=== PATIENT | male | born 1995 | race Caucasian/White ===

== ENCOUNTER 2016-07-23 12:28 | Day surgery (SDC) | payer BC ==
[2016-07-23] MEDS ORDERED: VENTOLIN HFA18 GM INH (12:52)
[2016-07-23] MEDS ORDERED: IV RINGERS,LACTATED 1000ML 1,000 ML IV ONE (13:15)
[2016-07-23] MEDS ORDERED: CLINDAMYCIN 600MG PREMIX 50 ML IV ONE (13:15)
[2016-07-23] MEDS ORDERED: IV RINGERS,LACTATED 1000ML 1,000 ML IV SCH (13:34)
[2016-07-23] MEDS ORDERED: MORPHINE SULFATE 2 MG/ML DISP.SYRIN. IV PRN (13:45)
[2016-07-23] MEDS ORDERED: LIDOCAINE 1% 1 ML SYRINGE. ID PRN (13:45)
[2016-07-23] MEDS ORDERED: PROCHLORPERAZINE 10 MG/2 ML VIAL. IV PRN (13:45)
[2016-07-23] MEDS ORDERED: FENTANYL PF 100 MCG/2 ML VIAL. IV PRN ×2 (13:45)
[2016-07-23] MEDS ORDERED: ONDANSETRON PF 4 MG/2 ML VIAL. IV PRN (13:45)
[2016-07-23] MEDS ORDERED: HYDROMORPHONE 2 MG/ML VIAL. IV PRN (13:45)
[2016-07-23] MEDS ORDERED: BUPIVACAINE 0.5% 50 ML VIAL. ONE (13:58)
[2016-07-23] MEDS ORDERED: FENTANYL PF 100 MCG/2 ML VIAL. ONE (13:59)
[2016-07-23] MEDS ORDERED: MIDAZOLAM HCL/PF 2 MG/2 ML VIAL. ONE (13:59)
[2016-07-23] MEDS ORDERED: SEVOFLURANE 61 TO 120 MINUTES. IH ONE (14:00)
[2016-07-23] MEDS ORDERED: PROPOFOL 20 ML IV ONE (14:00)
[2016-07-23] MEDS ORDERED: LIDOCAINE 2% 100 MG/5 ML SYRINGE. ONE (14:00)
--- NOTE | 2016-07-23 14:45 | HP ---
ADMIT DATE: 07/23/2016 The patient is coming in today for operation. CHIEF COMPLAINT: Right testicular mass. HISTORY OF PRESENT ILLNESS: The patient is a very pleasant 21-year-old white male who was seen in the Emergency Room on the morning of 07/23/2016 for swelling and discomfort in the right testicle. The patient had workup including ultrasound, which showed a heterogeneous solid mass within the right testicle measuring 32 x 30 x 25 mm with internal blood flow and concerning for testicular neoplasm. The patient states he first started noticing the enlarged right testicle, which was firm several days ago. The patient with no prior urologic history. PAST MEDICAL HISTORY: Significant for asthma and some concussion. CURRENT MEDICATION: Albuterol inhaler as needed. ALLERGIES: HE HAS ALLERGY TO PENICILLIN, LORABID AND CEPHALOSPORINS. PAST SURGICAL HISTORY: He has had previous arthroscopic knee surgery in 2013 and wisdom tooth extraction in the past. The patient reports no problems with voiding. REVIEW OF SYSTEMS: ____ discomfort in the right hemiscrotum. PHYSICAL EXAMINATION: GENERAL: The patient is well-developed, well-nourished white male, in no acute distress. HEENT: Normocephalic, atraumatic. NECK: Supple. CHEST: Clear to auscultation. CARDIOVASCULAR: Regular rate and rhythm. ABDOMEN: Soft, nontender, no CVA tenderness. GENITOURINARY: Left testicle is normally descended. Right testicle is approximately twice the size of the left testicle and firm with some tenderness to palpation. No inguinal hernias. Phallus within normal limits. RECTAL: Good sphincter tone. Prostate smooth, nontender, without nodules, overall size 15 grams. EXTREMITIES: Without clubbing, cyanosis or edema. NEUROLOGIC: Grossly intact. LABORATORY DATA: The patient's LDH is 296. ____ are pending. Chest x-ray was within normal limits. PLAN: I discussed with the patient and his mother. The solid right testicular mass concerning for testicular neoplasm. We discussed the options, alternatives, benefits, risks and possible complications of right radical orchiectomy. They understand this and does wish to proceed with operation. We will therefore proceed accordingly today. GABRIEL OGDEN MD DR: JEB/fay JOB#: [id number] / [id number]
[2016-07-23] MEDS ORDERED: MORPHINE SULFATE 10 MG/ML VIAL. ONE (14:46)
[2016-07-23] MEDS ORDERED: ONDANSETRON PF 4 MG/2 ML VIAL. ONE (14:47)
[2016-07-23] MEDS ORDERED: DEXAMETHASONE SOD PHOS 20 MG/5 ML VIAL. ONE (14:47)
--- NOTE | 2016-07-23 15:53 | DISCH ---
DISCHARGE INSTRUCTIONS Condition on Discharge Condition on Discharge: Stable Activity After Discharge Activity Instructions for Disc: Avoid exertion Diet after Discharge Diet after Discharge: Regular Contacting the DR. after DC Call your doctor for: If your condition worsens Follow-Up Follow up with: follow up with Dr. Galaviz in 2 weeks GABRIEL GALAVIZ MD Jul 23, 2016 15:53
--- NOTE | 2016-07-23 15:55 | PDOC4 ---
Operative Note Operative Note Pre-op dx- Right solid testicular mass Procedure-Right radical orchiectomy Surgeon-agnes anes-General with local Pt. to PACU in stable condition GABRIEL OGDEN MD Jul 23, 2016 15:55
[2016-07-23 17:00] VITALS: BP 145/77
--- NOTE | 2016-07-23 22:15 | OP ---
DATE OF SURGERY: 07/23/2016 OPERATION: Right radical orchiectomy. SURGEON: Gabriel Galaviz MD. ANESTHESIA: General. PREOPERATIVE DIAGNOSIS: Solid right testicular mass. POSTOPERATIVE DIAGNOSIS: Solid right testicular mass. INDICATIONS: The patient is a very pleasant 21-year-old white male who presented to the Emergency Room on the morning of 07/23/2016 with discomfort and enlargement of the right testicle. The patient had a scrotal ultrasound which showed heterogeneous solid mass in the right testicle measuring 32 x 30 x 25 mm with internal blood flow concerning for testicular neoplasm. The patient has had preoperative tumor markers drawn and chest x-ray performed which was negative. 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 I discussed with the patient and his family the options, alternatives, benefits, risks and possible complications of right radical orchiectomy. They understood this and they wish to proceed with operation. DESCRIPTION OF PROCEDURE: After obtaining the informed consent, the patient was taken to the operating room and placed in a supine position. Lower abdomen and groin and upper thighs were then prepped and draped in sterile fashion. The patient was preloaded with IV antibiotics. The patient was noted to have a normal feeling and located left testicle and the right testicle felt firm and enlarged and solid. A right inguinal incision was then performed along the skin lines and the incision carried down through subcutaneous tissues. Hemostasis was maintained with a fine tip electrocautery. Dissection was carried down to the aponeurosis of external oblique. The aponeurosis was then cleaned and incised in the direction of its fibers down through the external ring. The right ilioinguinal nerve was identified and preserved. The right spermatic cord was then encircled at the pubic tubercle and a Casey drain placed as a Pearl tie around the cord to occlude it. Following this, the right testicle was then delivered up via inguinal wound and dissected free of surrounding tissues. The gubernaculum was taken down and ligated and divided with 3-0 chromic ligatures. Once the testicle was completely free along with the spermatic cord, it was dissected free at the level of the right internal ring. The cord was then triply clamped at the right internal ring and divided and the specimen of the right testicle and spermatic cord sent to pathology placed in formalin and sent to pathology. Following this, the right spermatic cord stump was then triply ligated with 0 silk free tie and 2-0 silk ____ tie and the suture left long on the stump after cutting the stump. Hemostasis was checked and found to be excellent. Following this, the right inguinal wound was then thoroughly irrigated with copious amounts of sterile water. Hemostasis was maintained with fine tip electrocautery and 3-0 chromic ligatures. Hemostasis was checked and found to be excellent. Following this, the right ilioinguinal nerve was identified and again found to be preserved. The aponeurosis of external oblique was then closed with 3-0 Vicryl running suture. Again the wound was irrigated and the Sofía fascia closed with 3-0 chromic running suture and then the skin closed with 4-0 Monocryl running subcuticular suture. The wound was infiltrated with 0.5% Marcaine prior to closure for postoperative pain control. Hemostasis was checked and found to be excellent. Following this, the skin was then cleansed and Steri-Strips and a sterile dressing were applied. Fluffs were placed on the scrotum and mesh pants placed. The left testicle was found to be in good position at the end of the case in the left hemiscrotum. The patient tolerated the procedure very well, was taken to recovery room in stable condition. GABRIEL GALAVIZ MD DR: JEB/fay JOB#: [id number] / [id number]
== END 2016-07-23 17:13 | disposition home or self-care (01) ==
LOC: SURG 12:28
PROVIDERS: ATTEND Urology
DX: N50.89 Other specified disorders of the male genital organs (principal); Z87.39 Personal history of other diseases of the musculoskeletal system and connective tissue
CPT/HCPCS: 54520; J1100; J2250; J2270; J2405; J2704; J3010; J3490; J7120

== ENCOUNTER → 2016-07-30 | Outpatient (CLI) | payer BC ==
[2016-07-23 17:00] VITALS: BP 145/77
[~2016-07-30] MED LIST: IOHEXOL 240 MG/ML 50ML VIAL. PO ONE; IOHEXOL 300 MG/ML 75 ML VIAL IV ONE; VENTOLIN HFA18 GM INH
--- NOTE | 2016-07-30 09:51 | RAD ---
Indication testicular malignancy. Axial images through the abdomen and pelvis were obtained. Both oral and IV contrast were administered. 75 cc of Omnipaque 300 was administered intravenously. No prior imaging of the abdomen or pelvis is available. The lung bases are clear. There is air in the soft tissues of the right groin which is likely secondary to recent surgery. Clinical correlation advised. The liver appears unremarkable and the gallbladder is grossly normal. The spleen is at the upper limits of normal in size. The pancreas adrenal glands and kidneys appear normal. Acute finding in the abdomen is not seen. No acute finding is apparent in the pelvis. There is mild to moderate retroperitoneal adenopathy. A few lymph nodes are seen in the area of the leopoldo hepatis and surrounding the pancreas. Mild periaortic adenopathy is seen as well as a few lymph nodes at the level of the aortic bifurcation in the retroperitoneum. The short axis of the largest nodes measures approximately 9 mm. The etiology is unclear but metastatic disease accounting for this moderate adenopathy is not excluded. 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 The etiology is unclear. Metastatic disease is not excluded PQRS Compliance Statement: One or more of the following individualized dose reduction techniques were utilized for this examination: 1. Automated exposure control 2. Adjustment of the mA and/or kV according to patient size 3. Use of iterative reconstruction technique
== END | disposition home or self-care (01) ==
LOC: CT 07:52
PROVIDERS: ATTEND Urology
DX: N50.9 Disorder of male genital organs, unspecified (principal)
CPT/HCPCS: 74177; Q9966; Q9967

== ENCOUNTER 2016-09-15 03:14 | Inpatient (IN) | payer BC ==
[~2016-09-15] VITALS: Ht 193 cm; Wt 133.8 kg
[2016-09-15] VITALS (22 sets, daily range): BP systolic 99–166; BP diastolic 40–71
[~2016-09-15 03:14] MED LIST changes: -IOHEXOL 240 MG/ML 50ML VIAL. PO ONE; -IOHEXOL 300 MG/ML 75 ML VIAL IV ONE
[2016-09-15] MEDS ORDERED: PROPOFOL 100 ML IV ONE (04:29)
[2016-09-15] MEDS ORDERED: ONDANSETRON PF 4 MG/2 ML VIAL. IV PRN (05:15)
[2016-09-15] MEDS ORDERED: ACETAMINOPHEN 650 MG/20.3 ML SOLUTION. PEG PRN (05:15)
[2016-09-15] MEDS: IV NORMAL SALINE 1000ML BAG 1,000 ML IV SCH ×2 (05:24→18:07)
[2016-09-15] MEDS: PROPOFOL 100 ML IV PRN ×5 (05:25→14:55)
[2016-09-15 05:35] LABS: FIO2 ABG 60; HCO3 ABG 22 mmol/L (21-28); PCO2 ABG 35 mmHg (35-46); PH ABG 7.41 (7.35-7.45); PO2 ABG 210 mmHg (85-108); SAT O2 ABG 99 % (92-99)
[2016-09-15] MEDS ORDERED: PNEUMOCOCCAL VAX SCREEN BY RX. MC ONE (06:00)
--- NOTE | 2016-09-15 06:52 | RAD ---
KUB: Reason for examination: NG tube placement. NG tube is present with the tip and side port within the stomach proximally. There is no gross organomegaly. Psoas muscles are symmetric. The bowel gas pattern is nonspecific small and large intestinal air present but no apparent obstruction. No acute bony abnormalities are seen. IMPRESSION: NG tube present with the tip and side port in the proximal stomach. Nonspecific bowel gas pattern with small and large intestine air present but no evidence of obstruction. Electronically signed by: Saige Long MD (09/15/2016 6:49 AM)
[2016-09-15] MEDS ORDERED: PNEUMOC CONJ VACC 23-VALENT 0.5 ML VIAL. VAX IM ONE (09:00)
--- NOTE | 2016-09-15 09:37 | RAD ---
Indication respiratory failure. Single view of the chest was obtained. No prior imaging of the chest is available. Heart size is at the upper limits of normal. There is no gross congestive heart failure. There is no consolidated pneumonia seen. Significant pleural fluid is not present. There is no pneumothorax. Nasogastric tube is coiled in the body of the stomach. Endotracheal tube is appropriately positioned above the jesus. IMPRESSION: No acute or focal process seen in the chest. Appropriately positioned nasogastric and endotracheal tubes.
--- NOTE | 2016-09-15 09:51 | RAD ---
Fall, injury. Closed head injury. Noncontrast images of the head were obtained. No prior imaging of the head is available. No acute or significant calvarial finding is seen. The visualized paranasal sinuses appear unremarkable. There is no subdural or epidural hematoma. The ventricles and sulci are normal. There is no mass or midline shift. No hemorrhage is seen. Acute intracranial finding is not seen. IMPRESSION: No acute or significant finding seen intracranially PQRS Compliance Statement: One or more of the following individualized dose reduction techniques were utilized for this examination: 1. Automated exposure control 2. Adjustment of the mA and/or kV according to patient size 3. Use of iterative reconstruction technique
[2016-09-15] MEDS: PANTOPRAZOLE IV PUSH 40 MG VIAL. IVP SCH (09:53)
[2016-09-15] MEDS: ENOXAPARIN 40 MG/0.4 ML SYRINGE. SQ SCH (09:54)
[2016-09-15 10:36] LABS: BASO % 1 % (0-3); EOS % 1 % (0-3); HEMATOCRIT 38.9 % (39.0-53.0); LYMPH # 3.6 x10^3/uL (1.0-4.8); LYMPH % 46 % (24-48); MEAN CORPUSCULAR HEMOGLOBIN 28 pg (25-35); MEAN CORPUSCULAR HGB CONC 33 g/dL (31-37); MEAN CORPUSCULAR VOLUME 83 fL (79-100); MONO % 8 % (0-9); NEUT % 44 % (31-73); PLATELET COUNT 251 x10^3/uL (140-400); RED BLOOD COUNT 4.68 x10^6/uL (4.30-5.70); RED CELL DISTRIBUTION WIDTH 16.2 % (11.5-14.5); WHITE BLOOD COUNT 7.9 x10^3/uL (4.0-11.0)
--- NOTE | 2016-09-15 10:45 | PDOC ---
PULMONARY PROGRESS NOTES Vitals Vital Signs Date Time Temp Pulse Resp B/P (MAP) Pulse Ox O2 Delivery O2 Flow Rate FiO2 09/15/16 08:56 100 Ventilator 09/15/16 06:30 69 17 110/50 (70) 09/15/16 04:45 96.2 96.2 Labs Laboratory Tests Test 09/15/16 05:15 O2 Saturation 99 % (92-99) Arterial Blood pH 7.41 (7.35-7.45) Arterial Blood pCO2 at Patient Temp 35 mmHg (35-46) Arterial Blood pO2 at Patient Temp 210 mmHg (85-108) Arterial Blood HCO3 22 mmol/L (21-28) Arterial Blood Base Excess -2 mmol/L (-3-3) FiO2 60 Laboratory Tests Test 09/15/16 05:15 O2 Saturation 99 % (92-99) Arterial Blood pH 7.41 (7.35-7.45) Arterial Blood pCO2 at Patient Temp 35 mmHg (35-46) Arterial Blood pO2 at Patient Temp 210 mmHg (85-108) Arterial Blood HCO3 22 mmol/L (21-28) Arterial Blood Base Excess -2 mmol/L (-3-3) FiO2 60 Medications Active Scripts Medications Dose Route/Sig Max Daily Dose Days Date Category Ventolin Hfa Inhaler (Albuterol Sulfate) 18 Gm Hfa.aer.ad 2 Puff INH QID 07/23/16 Reported Impression . NOTE DICTATED RESP FAILURE SEC TO DRUG OD EXTUBATE IN AM BEBE MIKE MD Sep 15, 2016 10:45
[2016-09-15 10:48] LABS: CALCIUM 8.1 mg/dL (8.5-10.1); CREATININE 0.9 mg/dL (0.7-1.3); GFR 106.5; POTASSIUM 3.6 mmol/L (3.5-5.1)
--- NOTE | 2016-09-15 10:57 | PDOC1 ---
History and Physical Date of Admission Date of Admission DATE: 09/15/16 TIME: 10:44 Identification/Chief Complaint Chief Complaint confusion, alcohol intoxicated Problems: Source Source: Caregiver, Chart review History of Present Illness History of Present Illness 21 y.o male, only hx is asthma and testicular cancer recently had sx by urology (dr galaviz) this July 23, 2016 here at [facility], was confused, vomiting at [facility], found to be intoxicated with etoh hence intubated. ETOH levels 369. LActate normal. WBC only 11, rest of labs ok/unimpressive Seen in ICU now, VS ok, labs ok, ABG and CXR ok, I have personally reviewed Dw pulmo, plans of extubation shirlene - wean off propofol today see mentation As per family at bedside, no hx of heavy etohism that they know Past Medical History Cardiovascular: No pertinent hx Pulmonary: No pertinent hx GI: No pertinent hx Heme/Onc: Cancer (testicular cancer) Psych: No pertinent hx Rheumatologic: No pertinent hx Infectious disease: No pertinent hx Renal/: No pertinent hx Endocrine: No pertinent hx Dermatology: No pertinent hx Social History Smoke: No ALCOHOL: other (just this binge) Drugs: None Current Medications Current Medications Current Medications Propofol 100 ml @ As Directed STK-MED ONCE IV ; Start 09/15/16 at 04:29; Stop at 04:30; Status DC Propofol 100 ml @ 0 mls/hr CONT PRN IV SEE I/O RECORD Last administered on 09:56; Start 09/15/16 at 05:15 Pantoprazole Sodium (Protonix Vial) 40 mg DAILY IVP Last administered on 09:53; Start 09/15/16 at 09:00 Enoxaparin Sodium (Lovenox 40mg Syringe) 40 mg Q24H SQ Last administered on 09/15 09:54; Start 09/15/16 at 05:30 Ondansetron HCl (Zofran) 4 mg PRN Q6HRS PRN IV NAUSEA/VOMITING; Start 09/15/16 at 05:15 Acetaminophen (Tylenol) 650 mg PRN Q6HRS PRN PEG MILD PAIN / TEMP; Start at 05:15 Sodium Chloride 1,000 ml @ 100 mls/hr Q10H IV Last administered on 6/7/17at 05 :24; Start 09/15/16 at 05:30 Pneumococcal Polyvalent Vaccine (Do NOT chart on this placeholder) 1 each 1X ONCE MC ; Start 09/15/16 at 06:00; Stop 09/15/16 at 06:01; Status UNV Pneumococcal Polyvalent Vaccine (Pneumovax 23) 0.5 ml ONCE ONCE VAX IM ; Start 09/15/16 at 09:00; Stop 09/15/16 at 09:01; Status DC Active Scripts Active Reported Ventolin Hfa Inhaler (Albuterol Sulfate) 18 Gm Hfa.aer.ad 2 Puff INH QID Allergies Allergies: Coded Allergies: Penicillins (Unverified Allergy, Intermediate, Rash, 07/23/16) loracarbef (Unverified Allergy, Intermediate, 07/30/16) Cephalosporins (Verified Allergy, Unknown, Rash, 07/23/16) ROS Review of System intubated Physical Exam General: No acute distress, Other (intubated,s edated weighs 300lbs, 6'4") HEENT: PERRLA Lungs: Clear to auscultation, Normal air movement Cardiovascular: S1, S2 Abdomen: Normal bowel sounds, Soft, No tenderness, No hepatosplenomegaly, No masses Male Genitals Exam: normal genitalia, normal prostate Rectal Exam: not examined Extremities: No clubbing, No cyanosis, No edema, Normal pulses, No tenderness/ swelling Skin: No rashes, No breakdown, No significant lesion Vitals Vitals Vital Signs Date Time Temp Pulse Resp B/P (MAP) Pulse Ox O2 Delivery O2 Flow Rate FiO2 09/15/16 08:56 100 Ventilator 09/15/16 06:30 69 17 110/50 (70) 09/15/16 04:45 96.2 96.2 Labs Labs Laboratory Tests Test 09/15/16 05:15 O2 Saturation 99 % (92-99) Arterial Blood pH 7.41 (7.35-7.45) Arterial Blood pCO2 at Patient Temp 35 mmHg (35-46) Arterial Blood pO2 at Patient Temp 210 mmHg (85-108) Arterial Blood HCO3 22 mmol/L (21-28) Arterial Blood Base Excess -2 mmol/L (-3-3) FiO2 60 Laboratory Tests Test 09/15/16 05:15 O2 Saturation 99 % (92-99) Arterial Blood pH 7.41 (7.35-7.45) Arterial Blood pCO2 at Patient Temp 35 mmHg (35-46) Arterial Blood pO2 at Patient Temp 210 mmHg (85-108) Arterial Blood HCO3 22 mmol/L (21-28) Arterial Blood Base Excess -2 mmol/L (-3-3) FiO2 60 VTE Prophylaxis Ordered VTE Prophylaxis Devices: Yes VTE Pharmacological Prophylaxi: Yes Assessment/Plan Assessment/Plan 1. Acute respiratory failure intubated for airway protection, (09/14/16) 2. Emesis while intoxicated 3. EToh ;levels 369 4. Recent orchiectomy for testicular CA, limited (07/23/16, Dr. Galaviz) PLAN: ICU admit Wean off propofol - see mentation POssible trial of extubation shirlene DVT and pPI prophy TF vs some iVF for now Dw pulmo and [employer] NUtrition consult ARABELLA CUNNINGHAM MD Sep 15, 2016 10:57
[2016-09-15] MEDS ORDERED: fentaNYL PF VIAL 100 MCG/2 ML VIAL IV PRN (13:30)
[2016-09-16] VITALS (11 sets, daily range): BP systolic 121–159; BP diastolic 48–80
--- NOTE | 2016-09-16 01:11 | CONS ---
DATE OF CONSULTATION: 09/15/2016 ATTENDING PHYSICIAN: Dr. Malgorzata Curtis. REASON FOR CONSULTATION: The patient is seen in pulmonary consultation at the request of Dr. Curtis for vent management. HISTORY OF PRESENT ILLNESS: The patient is a 21-year-old with a recent history of testicular mass, status post resection, currently under control according to his mother at the bedside. Last markers were within normal range. He also has history of asthma, but has not had any hospitalization, no frequent exacerbations, presented to the Emergency Room at [facility] with nausea, vomiting and altered mental status after consuming some hydrocodone, Percocet and alcohol. His alcohol level was markedly elevated. The patient was intubated as a consequence of airway protection, did have episodes of emesis. He was then transferred to the [facility]. I was asked to see him in consultation. He is currently hemodynamically stable on assist control ventilation. I reviewed his medication. He is receiving IV fluids, sedated, on DVT prophylaxis and GI prophylaxis. PAST MEDICAL HISTORY: As above, testicular cancer, recent diagnosis; asthma, mild in nature. ALLERGIES: CEPHALOSPORIN, PENICILLIN, LORACARBEF. REVIEW OF SYSTEMS: Unobtainable secondary to the patient's condition. HOME MEDICATIONS: List was reviewed. SOCIAL HISTORY: No history of tobacco use. PHYSICAL EXAMINATION: GENERAL: The patient was sedated. VITAL SIGNS: Stable. O2 saturation greater than 92%. HEENT: Eyes, the sclerae were nonicteric. NECK: Jugular venous distention was not elevated. No lymphadenopathy. CHEST: Full expansion. LUNGS: Adequate airway flow, no wheezes. CARDIOVASCULAR: Regular rate and rhythm with S1, S2, no S3. ABDOMEN: Soft, nontender, nondistended. EXTREMITIES: No clubbing, cyanosis or edema. NEUROLOGIC: The patient was sedated. Chest x-ray was reviewed from [facility], some atelectasis, otherwise no infiltrates. LABORATORY DATA: Likewise reviewed. This morning, blood gas; pH of 7.41, PaCO2 of 35, pO2 of 210. IMPRESSION: 1. Acute respiratory failure secondary to alcohol intoxication. 2. Alcoholic intoxication. 3. Emesis secondary to above. 4. History of testicular cancer. 5. Mild asthma. PLAN: We will continue current support with mechanical ventilation ____ to clear the system, proceed with extubation in the a.m. Decrease minute ventilation to normalize pH. I discussed the above with parents. I do appreciate the privilege in sharing in the patient's care. Total cumulative critical care time of 40 minutes. BEBE MIKE MD DR: Kennedi JOB#: [id number] / [id number]
[2016-09-16] MEDS: IV NORMAL SALINE 1000ML BAG 1,000 ML IV SCH (03:50)
[2016-09-16] MEDS: ENOXAPARIN 40 MG/0.4 ML SYRINGE. SQ SCH (05:30)
[2016-09-16] MEDS: PANTOPRAZOLE IV PUSH 40 MG VIAL. IVP SCH (09:37)
--- NOTE | 2016-09-16 11:29 | PDOC ---
PULMONARY PROGRESS NOTES Vitals Vital Signs Date Time Temp Pulse Resp B/P (MAP) Pulse Ox O2 Delivery O2 Flow Rate FiO2 09/16/16 10:00 104 22 155/80 (105) 97 Room Air 09/16/16 04:00 98.3 98.3 Cardiovascular: S1, S2 Labs Laboratory Tests Test 09/15/16 05:07 09/15/16 05:15 09/15/16 10:25 Nasal Screen MRSA (PCR) Negative (Negative) O2 Saturation 99 % (92-99) Arterial Blood pH 7.41 (7.35-7.45) Arterial Blood pCO2 at Patient Temp 35 mmHg (35-46) Arterial Blood pO2 at Patient Temp 210 mmHg (85-108) Arterial Blood HCO3 22 mmol/L (21-28) Arterial Blood Base Excess -2 mmol/L (-3-3) FiO2 60 White Blood Count 7.9 x10^3/uL (4.0-11.0) Red Blood Count 4.68 x10^6/uL (4.30-5.70) Hemoglobin 13.0 g/dL (13.0-17.5) Hematocrit 38.9 % (39.0-53.0) Mean Corpuscular Volume 83 fL (79-100) Mean Corpuscular Hemoglobin 28 pg (25-35) Mean Corpuscular Hemoglobin Concent 33 g/dL (31-37) Red Cell Distribution Width 16.2 % (11.5-14.5) Platelet Count 251 x10^3/uL (140-400) Neutrophils (%) (Auto) 44 % (31-73) Lymphocytes (%) (Auto) 46 % (24-48) Monocytes (%) (Auto) 8 % (0-9) Eosinophils (%) (Auto) 1 % (0-3) Basophils (%) (Auto) 1 % (0-3) Neutrophils # (Auto) 3.5 x10^3uL (1.8-7.7) Lymphocytes # (Auto) 3.6 x10^3/uL (1.0-4.8) Monocytes # (Auto) 0.6 x10^3/uL (0.0-1.1) Eosinophils # (Auto) 0.1 x10^3/uL (0.0-0.7) Basophils # (Auto) 0.0 x10^3/uL (0.0-0.2) Sodium Level 148 mmol/L (136-145) Potassium Level 3.6 mmol/L (3.5-5.1) Chloride Level 112 mmol/L (98-107) Carbon Dioxide Level 24 mmol/L (21-32) Anion Gap 12 (6-14) Blood Urea Nitrogen 9 mg/dL (8-26) Creatinine 0.9 mg/dL (0.7-1.3) Estimated GFR (Cockcroft-Gault) 106.5 Glucose Level 89 mg/dL (70-99) Calcium Level 8.1 mg/dL (8.5-10.1) Medications Active Scripts Medications Dose Route/Sig Max Daily Dose Days Date Category Ventolin Hfa Inhaler (Albuterol Sulfate) 18 Gm Hfa.aer.ad 2 Puff INH QID 07/23/16 Reported Impression . 1. Acute respiratory failure secondary to alcohol intoxication. 2. Alcoholic intoxication. 3. Emesis secondary to above. 4. History of testicular cancer. 5. Mild asthma. Plan . PLAN: We will continue current support with mechanical ventilation ____ to clear the system, proceed with extubation in the a.m. BEBE MIKE MD Sep 16, 2016 11:29
== END 2016-09-16 10:30 | disposition home or self-care (01) | DRG 917 ==
LOC: 1 WEST ICU 04:25
PROVIDERS: ADMIT Internal Medicine; ATTEND Internal Medicine
PROC: 5A1935Z Respiratory Ventilation, Less than 24 Consecutive Hours (ICD-10-PCS; principal; 2016-09-15)
PROC: 0BH17EZ Insertion of Endotracheal Airway into Trachea, Via Natural or Artificial Opening (ICD-10-PCS; 2016-09-15)
DX: T50.901A Poisoning by unspecified drugs, medicaments and biological substances, accidental (unintentional), initial encounter (principal); J96.00 Acute respiratory failure, unspecified whether with hypoxia or hypercapnia; J45.909 Unspecified asthma, uncomplicated; F10.129 Alcohol abuse with intoxication, unspecified; Z85.47 Personal history of malignant neoplasm of testis; Z88.0 Allergy status to penicillin; Z88.8 Allergy status to other drugs, medicaments and biological substances
CPT/HCPCS: 36415; 36600; 70450; 71010; 74000; 80048; 82805; 85027; 87641; 90732; 94002; 94003; C9113; J1650; J2704; J3010; J7030